=== PATIENT | male | born 1965 | race Caucasian/White ===

== ENCOUNTER 2018-12-17 11:35 | Emergency (ER) | payer MEDICAID, OTHER ==
--- NOTE | 2018-12-17 13:39 | EDM.PDOC ---
ED HPI GENERAL MEDICAL PROBLEM - General Chief Complaint: Bite:Animal, Insect Stated Complaint: TICK BITE Time Seen by Provider: 12/17/18 13:38 - History of Present Illness INITIAL COMMENTS - FREE TEXT/NARRATIVE: Patient left without being seen - Related Data Allergies Allergy/AdvReac Type Severity Reaction Status Date / Time No Known Allergies Allergy Verified 12/17/18 11:46 Home Meds: Home Meds Apixaban [Eliquis] 0 mg PO BID 12/17/18 [History] Past Medical History HEENT History: Reports: None Cardiovascular History: Reports: None Other Cardiovascular History: Hx of DVT in December 2017. Other Respiratory History: Hx of PE in 2018. Gastrointestinal History: Reports: None Genitourinary History: Reports: None Musculoskeletal History: Reports: None Neurological History: Reports: None Psychiatric History: Reports: None Endocrine/Metabolic History: Reports: None Hematologic History: Reports: None Immunologic History: Reports: None Oncologic (Cancer) History: Reports: None Dermatologic History: Reports: None - Past Surgical History Head Surgeries/Procedures: Reports: None Social & Family History - Tobacco Use Smoking Status *Q: Never Smoker - Caffeine Use Caffeine Use: Reports: Coffee - Recreational Drug Use Recreational Drug Use: No ED ROS GENERAL - Review of Systems Review Of Systems: See Below (Left without being seen) ED EXAM, ANIMAL BITE - Physical Exam Exam: See Below (Left without being seen) Course - Vital Signs Last Recorded V/S: Last Vital Signs Temp 36.6 C 12/17/18 11:44 Pulse 96 12/17/18 11:44 Resp 16 12/17/18 11:44 BP 157/90 H 12/17/18 11:44 Pulse Ox 98 12/17/18 11:44 Departure - Departure Time of Disposition: 13:39 Disposition: Eloped 07 Clinical Impression: Patient left without being seen - Discharge Information Referrals: PCP,None [Primary Care Provider] -
== END 2018-12-17 13:39 | disposition left against medical advice (07) ==
LOC: JD.ED 11:35
DX: Z53.21 Procedure and treatment not carried out due to patient leaving prior to being seen by health care provider (principal)